=== PATIENT | female | born 1995 | race Two or more races ===

== ENCOUNTER 2020-08-09 23:41 | Emergency (ER) | payer OTHER ==
[~2020-08-09] VITALS: Ht 167.6 cm; Wt 81.6 kg
[2020-08-10] MEDS ORDERED: PRENATALES (00:20)
[2020-08-10] MEDS ORDERED: AZITHROMYCIN250 MG PO (06:19)
[2020-08-10] MEDS ORDERED: MEDROLPACK PO (06:19)
[2020-08-10] MEDS ORDERED: INTESTINEX680 M2 PO (06:19)
== END 2020-08-10 06:30 | disposition home or self-care (01) ==
LOC: ER 23:41
DX: O98.512 Other viral diseases complicating pregnancy, second trimester (principal); U07.1 COVID-19; B96.0 Mycoplasma pneumoniae [M. pneumoniae] as the cause of diseases classified elsewhere; Z3A.16 16 weeks gestation of pregnancy

== ENCOUNTER 2021-01-02 10:30 | Inpatient (IN) | payer OTHER ==
[~2021-01-02] VITALS: Ht 167.6 cm; Wt 98.0 kg
[~2021-01-02 10:30] MED LIST: AZITHROMYCIN250 MG PO; INTESTINEX680 M2 PO; MEDROLPACK PO; PRENATALES
[2021-01-22] MEDS ORDERED: PRENATAL + DHA1 EAC1 PO (08:15)
== END 2021-01-23 15:56 | disposition home or self-care (01) | DRG 807 ==
LOC: LDR 01-21 06:25 → SURG-SUITE 01-21 06:25 → SURH 01-23 12:15 → SURG-SUITE 01-23 15:56
PROVIDERS: ADMIT Obstetrics & Gynecology Maternal & Fetal Medicine; ATTEND Obstetrics & Gynecology Maternal & Fetal Medicine
PROC: 10E0XZZ Delivery of Products of Conception, External Approach (ICD-10-PCS; principal; 2021-01-21)
PROC: 0KQM0ZZ Repair Perineum Muscle, Open Approach (ICD-10-PCS; 2021-01-21)
PROC: 10907ZC Drainage of Amniotic Fluid, Therapeutic from Products of Conception, Via Natural or Artificial Opening (ICD-10-PCS; 2021-01-21)
PROC: 3E033VJ Introduction of Other Hormone into Peripheral Vein, Percutaneous Approach (ICD-10-PCS; 2021-01-21)
PROC: 4A1HXFZ Monitoring of Products of Conception, Cardiac Rhythm, External Approach (ICD-10-PCS; 2021-01-21)
DX: O70.1 Second degree perineal laceration during delivery (principal); Z37.0 Single live birth; Z3A.39 39 weeks gestation of pregnancy; Z20.822 Contact with and (suspected) exposure to COVID-19

== ENCOUNTER 2021-01-20 10:48 | Outpatient (CLI) | payer OTHER | END 2021-01-20 11:20 | disposition home or self-care (01) | LOC: NST 10:48 | PROVIDERS: ATTEND Obstetrics & Gynecology Maternal & Fetal Medicine | DX: Z34.03 Encounter for supervision of normal first pregnancy, third trimester (principal) ==